=== PATIENT | male | born 1960 | race American Indian/Alaskan Native ===

== ENCOUNTER 2021-04-04 14:20 | Emergency (ER) | payer OTHER, MEDICARE ==
[~2021-04-04] VITALS: Ht 180.3 cm; Wt 89.4 kg
[2021-04-04] MEDS ORDERED: CITALOPRAM HBR20 MG PO (14:22)
[2021-04-04] MEDS ORDERED: HYDROXYZINE HCL50 MG PO (14:22)
[2021-04-04] MEDS ORDERED: NADOLOL20 MG PO (14:22)
[2021-04-04] MEDS ORDERED: FAMOTIDINE20 MG PO (14:22)
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
[2021-04-04] MEDS ORDERED: HYDROCODON-ACE1 EA10 PO (16:24)
== END 2021-04-04 16:31 | disposition home or self-care (01) ==
LOC: ED 14:20
DX: S09.90XA Unspecified injury of head, initial encounter (principal); S22.42XA Multiple fractures of ribs, left side, initial encounter for closed fracture; I10 Essential (primary) hypertension; F41.9 Anxiety disorder, unspecified; F17.200 Nicotine dependence, unspecified, uncomplicated; Z79.899 Other long term (current) drug therapy; W01.10XA Fall on same level from slipping, tripping and stumbling with subsequent striking against unspecified object, initial encounter
CPT/HCPCS: 70450; 71101; 72125; 99284-25

== ENCOUNTER 2021-05-27 17:21 | Emergency (ER) | payer MEDICARE, OTHER ==
[~2021-05-27] VITALS: Ht 180.3 cm; Wt 89.4 kg
[~2021-05-27 17:21] MED LIST: CITALOPRAM HBR20 MG PO; FAMOTIDINE20 MG PO; HYDROCODON-ACE1 EA10 PO; HYDROXYZINE HCL50 MG PO; NADOLOL20 MG PO
--- OUTSIDE RECORDS SUMMARY | 2021-05-27 17:24 | XMS ---
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 E.D. VISIT COUNT (12 MO.) 1 Rhett Laird Nikko TOTAL 3 NOTE: Visits indicate total known visits. ED/UCC VISIT TRACKING (12 MO.) 05/27/2021 17:21 [facility] [place] TYPE: Emergency COMPLAINT: - RT LEG PAIN/SWELLING 04/04/2021 14:20 [facility] TYPE: Emergency COMPLAINT: - CP PAIN DIAGNOSES: - Anxiety disorder, unspecified - Other chest pain - Other chest pain - Other exterminator helper (current) drug therapy - Essential (primary) hypertension - Unspecified injury of head, initial encounter - Nicotine dependence, unspecified, uncomplicated - Multiple fractures of ribs, left side, initial encounter for closed fracture - Fall on same level from slipping, tripping and stumbling with subsequent striking against unspecified object, initial encounter - Unspecified injury of head, initial encounter 10/09/2020 23:21 Rhett KLEIN [place] TYPE: Emergency [...] of consciousness of unspecified duration, initial encounter [email or web address]
[2021-05-27] MEDS ORDERED: BACTRIM DS TAB1 EACH PO (21:46)
[2021-05-27] MEDS ORDERED: CEPHALEXIN500 M1 PO (21:46)
--- NOTE | 2021-05-29 15:49 | EKG ---
[facility] [address] [place] [address] Signed Sinus rhythm with short [place] Otherwise normal ECG No previous ECGs available Confirmed by REBEL DICKERSON MD ([id number]) on 05/29/2021 3:48:51 PM Electronically Signed By: REBEL DICKERSON MD 05/29/21 1549 PATIENT NAME: JEET VARELA Electrocardiogram DATE OF : 62 PHYSICIAN: REBEL DICKERSON MD REPORT #: [id number] REPORT IS CONFIDENTIAL AND NOT TO BE RELEASED WITHOUT AUTHORIZATION
== END 2021-05-27 22:05 | disposition home or self-care (01) ==
LOC: ED 17:21
DX: L03.115 Cellulitis of right lower limb (principal); S00.81XA Abrasion of other part of head, initial encounter; X58.XXXA Exposure to other specified factors, initial encounter; Z23 Encounter for immunization; I10 Essential (primary) hypertension; K74.60 Unspecified cirrhosis of liver; F17.200 Nicotine dependence, unspecified, uncomplicated; Z79.899 Other long term (current) drug therapy
CPT/HCPCS: 71045; 73590; 80053; 81001; 83605; 83735; 84484; 85007; 85025; 90471; 90715; 93005; 93010; 99284-25; J7030; J7121

== ENCOUNTER 2021-06-02 08:27 | Emergency (ER) | payer MEDICARE, OTHER ==
[~2021-06-02] VITALS: Ht 180.3 cm; Wt 89.4 kg
[~2021-06-02 08:27] MED LIST changes: +BACTRIM DS TAB1 EACH PO; +CEPHALEXIN500 M1 PO
--- OUTSIDE RECORDS SUMMARY | 2021-06-02 08:30 | XMS ---
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 Care History Medical/Surgical 05/28/2021 [facility] - Patient is currently established with [facility]. If patient is seen in the ED during business hours. Please contact [facility] at [facility]. Care Recommendation: If this patient has had 5 or more Emergency Department visits in the last 12 months.\T\nbsp; Patient will require education on the scope and purpose of the ED as an acute care provider not a Primary Care Provider and should not be utilized for chronic conditions.\T\nbsp; These are guidelines and the provider should exercise clinical judgment when providing care. E.D. VISIT COUNT (12 MO.) 1 Rhett Evans TOTAL 4 NOTE: Visits indicate total known visits. ED/UCC VISIT TRACKING (12 MO.) 06/02/2021 08:28 [facility] Hard[facility] [place] TYPE: Emergency COMPLAINT: - URINATING BLOOD 05/27/2021 17:21 [facility]NE[facility] [place] TYPE: Emergency COMPLAINT: - RT LEG PAIN/NON INJ DIAGNOSES: - Encounter for immunization - Other halfway (current) drug therapy - Exposure to other specified factors, initial encounter - Cellulitis of right lower limb - Pain in right leg - Nicotine dependence, unspecified, uncomplicated - Abrasion of other part of head, initial encounter - Unspecified cirrhosis of liver - Essential (primary) hypertension 04/04/2021 14:20 [facility] [place] TYPE: Emergency COMPLAINT: - CP PAIN DIAGNOSES: - Anxiety disorder, unspecified - Other chest pain - Other chest pain - Other bed bug exterminator (current) 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
[2021-06-02] MEDS ORDERED: COLACE100 MG PO (09:23)
== END 2021-06-02 09:45 | disposition home or self-care (01) ==
LOC: ED 08:27
DX: K64.8 Other hemorrhoids (principal); I10 Essential (primary) hypertension; F17.200 Nicotine dependence, unspecified, uncomplicated; Z79.899 Other long term (current) drug therapy
CPT/HCPCS: 99283